=== PATIENT | male | born 1960 | race Caucasian/White ===

== ENCOUNTER 2020-11-08 14:32 | Outpatient (CLI) | payer MEDICARE ==
[~2020-11-08 14:32] MED LIST: Magnevist 469MG/ML 20 ML VIAL ONE
== END 2020-11-08 14:33 | disposition home or self-care (01) ==
LOC: BICMRI 14:32
PROVIDERS: ATTEND Specialist
DX: Z86.73 Personal history of transient ischemic attack (TIA), and cerebral infarction without residual deficits (principal); I10 Essential (primary) hypertension
CPT/HCPCS: 70553; 82565; A9579

== ENCOUNTER 2021-10-28 09:59 | Outpatient (CLI) | payer MEDICARE | END 2021-10-28 10:00 | disposition home or self-care (01) | LOC: TBSIIMAG 09:59 | PROVIDERS: ATTEND Anesthesiology Pain Medicine | DX: M48.062 Spinal stenosis, lumbar region with neurogenic claudication (principal); M48.02 Spinal stenosis, cervical region; M47.812 Spondylosis without myelopathy or radiculopathy, cervical region; M47.816 Spondylosis without myelopathy or radiculopathy, lumbar region; Z51.81 Encounter for therapeutic drug level monitoring; Z79.891 Long term (current) use of opiate analgesic; Z79.899 Other long term (current) drug therapy | CPT/HCPCS: 72141; 72148; 80307; G0483 ==

== ENCOUNTER 2021-11-21 12:00 | Outpatient (CLI) | payer MEDICARE | END 2021-11-21 12:01 | disposition home or self-care (01) | LOC: PET 12:00 | PROVIDERS: ATTEND Anesthesiology Pain Medicine | DX: C80.1 Malignant (primary) neoplasm, unspecified (principal) | CPT/HCPCS: 78815; A9552 ==

== ENCOUNTER 2022-03-12 08:33 | Outpatient (CLI) | payer MEDICARE ==
[~2022-03-12 08:33] MED LIST changes: +Gadobenate Dimeglumine 529 MG/1 ML (20ML VIAL) ONE; -Magnevist 469MG/ML 20 ML VIAL ONE
== END 2022-03-12 08:34 | disposition home or self-care (01) ==
LOC: TBSIIMAG 08:33
PROVIDERS: ATTEND Internal Medicine Hematology & Oncology
DX: C72.0 Malignant neoplasm of spinal cord (principal); G95.89 Other specified diseases of spinal cord
CPT/HCPCS: 72158; A9577

== ENCOUNTER 2023-02-19 12:49 | Outpatient (CLI) | payer OTHER | END 2023-02-19 12:50 | disposition home or self-care (01) | LOC: SCSRAD 12:49 | PROVIDERS: ATTEND Specialist | DX: M25.531 Pain in right wrist (principal) ==

== ENCOUNTER 2023-04-01 13:47 | Outpatient (CLI) | payer OTHER | END 2023-04-01 13:48 | disposition home or self-care (01) | LOC: MRI 13:47 | PROVIDERS: ATTEND Anesthesiology Pain Medicine | DX: M47.26 Other spondylosis with radiculopathy, lumbar region (principal); M47.815 Spondylosis without myelopathy or radiculopathy, thoracolumbar region | CPT/HCPCS: 72148 ==